=== PATIENT | male | born 1995 | race Two or more races ===

== ENCOUNTER 2017-09-02 00:11 | Emergency (ER) | payer OTHER ==
[2017-09-02] MEDS ORDERED: Sodium Chloride 0.9% 1,000 ML IV STA (00:21)
--- NOTE | 2017-09-02 00:39 | ED PDOC ---
Syncope/Near Syncope/Dizziness Time Seen by Provider: 09/02/17 00:17 Chief Complaint (Nursing): Syncope Chief Complaint (Provider): Syncope History Per: EMS History/Exam Limitations: clinical condition Additional Complaint(s): 22 y/o male brought in by [facility] who was found by a group of [employer] students laying in the bushes and was initially unresponsive. Patient was given oral glucose in the field and became more responsive. He has a history of eating disorders per EMS. Upon arrival to the ED, patient was not answering questions and is noted to be in a poor state of hygiene. PMD: None Provided Past Medical History Reviewed: Historical Data, Nursing Documentation, Vital Signs Vital Signs: Last Vital Signs Temp 97.4 F L 09/02/17 00:13 Pulse 93 H 09/02/17 00:13 Resp 16 09/02/17 00:13 BP 133/82 09/02/17 00:13 Pulse Ox 99 09/02/17 00:13 - Medical History Other PMH: Eating disorder - Family History Family History: States: Unknown Family Hx - Allergies Allergies/Adverse Reactions: Allergies Allergy/AdvReac Type Severity Reaction Status Date / Time No Known Allergies Allergy Verified 09/02/17 00:16 Review of Systems Review Of Systems: ROS cannot be obtained secondary to pt's inabilty to answer questions. Physical Exam - Reviewed Nursing Documentation Reviewed: Yes Vital Signs Reviewed: Yes - Physical Exam Appears: Positive for: Non-toxic, No Acute Distress Head Exam: Positive for: NORMAL INSPECTION, NORMOCEPHALIC. Negative for: ATRAUMATIC (abrasian to left cheek) Skin: Positive for: Normal Color, Warm, Dry Eye Exam: Positive for: Normal appearance, EOMI, PERRL. Negative for: Nystagmus ENT: Positive for: Normal ENT Inspection Neck: Positive for: Normal, Painless ROM, Supple Cardiovascular/Chest: Positive for: Regular Rate, Rhythm. Negative for: Edema, Murmur Respiratory: Positive for: Normal Breath Sounds. Negative for: Wheezing, Respiratory Distress Gastrointestinal/Abdominal: Positive for: Normal Exam, Bowel Sounds, Soft. Negative for: Tenderness Back: Positive for: Normal Inspection Extremity: Positive for: Normal ROM. Negative for: Pedal Edema, Deformity Neurologic/Psych: Positive for: Alert. Negative for: Oriented (not engagint to assess orientation) - Laboratory Results Result Diagrams: 09/02/17 00:55 09/02/17 00:55 - ECG O2 Sat by Pulse Oximetry: 99 (RA) Pulse Ox Interpretation: Normal Medical Decision Making Medical Decision Making: Time: 00:17 Initial Impression: 22 y/o male with syncopal event/mental status changes Initial Plan: --CT Head w/o Contrast --EKG --Alcohol Serum --CMP --Urine Drug Screen --Accucheck Time: 1:53 CT HEAD FINDINGS: Brain: Streak artifact limits evaluation of the skull base. No evidence of acute intracranial hemorrhage. Correlate clinically.. No significant white matter disease. No edema. Ventricles: Unremarkable. No ventriculomegaly. Bones/joints: No displaced fracture Soft tissues: Unremarkable. Sinuses: Unremarkable as visualized. No acute sinusitis. Mastoid air cells: Unremarkable as visualized. No mastoid effusion. IMPRESSION: Streak artifact limits evaluation of the skull base. No evidence of acute intracranial hemorrhage. Correlate clinically. Scribe Attestation: Documented by Manjeet Maldonado, acting as a scribe for Dr. Jordan Banda MD. Provider Scribe Attestation: All medical record entries made by the Scribe were at my direction and personally dictated by me. I have reviewed the chart and agree that the record accurately reflects my personal performance of the history, physical exam, medical decision making, and the department course for this patient. I have also personally directed, reviewed, and agree with the discharge instructions and disposition. Disposition - Clinical Impression Clinical Impression: Syncope - Patient ED Disposition Is Patient to be Admitted: No - Disposition Disposition: Routine/Home Disposition Time: 05:00 Condition: STABLE Instructions: Syncope (ED) Forms: [employer] (Kittitian)
[2017-09-02 00:59] LABS: BASO % 0.5 % (0.0-2.0); EOS # 0.1 K/uL (0.0-0.7); EOS % 0.9 % (0.0-4.0); HEMATOCRIT 40.1 % (35.0-51.0); LYMPH # 1.5 K/uL (1.0-4.3); LYMPH % 24.2 % (20.0-40.0); MEAN CELL VOLUME 82.6 fl (80.0-94.0); MEAN CORPUSCULAR HEMOGLOBIN 27.2 pg (27.0-31.0); MEAN PLATELET VOLUME 9.2 fl (7.2-11.7); MONO # 0.4 K/uL (0.0-0.8); MONO % 6.7 % (0.0-10.0); NEUT # 4.3 K/uL (1.8-7.0); NEUT % 67.7 % (50.0-75.0); RED CELL DISTRIBUTION WIDTH 12.8 % (11.5-14.5); WHITE BLOOD COUNT 6.4 K/uL (4.8-10.8)
[2017-09-02 01:09] LABS: ALB/GLOB RATIO 1.4 (1.0-2.1); ALCOHOL SERUM < 10 mg/dl (0-10); ALKALINE PHOSPHATASE 49 U/L (38-126); ALT/SGPT 40 U/L (21-72); AST/SGOT 31 U/L (17-59); BILIRUBIN,TOTAL 0.8 mg/dl (0.2-1.3); BLOOD UREA NITROGEN 15 mg/dl (9-20); CALCIUM 9.4 mg/dL (8.4-10.2); CARBON DIOXIDE 21 mmol/L (22-30); CHLORIDE 106 mmol/L (98-107); GFR AFRICAN-AMERICAN > 60; GLUCOSE,RANDOM 77 mg/dL (75-110); POTASSIUM 3.8 MMOL/L (3.6-5.0); SODIUM 145 mmol/l (132-148)
[2017-09-02 06:27] VITALS: BP 121/85; PULSE 41; RESP 11; TEMP 97.8
[2017-09-02 06:43] VITALS: O2SAT 99
--- NOTE | 2017-09-02 08:12 | CT ---
PROCEDURE: CT HEAD WITHOUT CONTRAST. HISTORY: AMS COMPARISON: None available. TECHNIQUE: Axial computed tomography images were obtained through the head/brain without intravenous contrast. Radiation dose: Total exam DLP = 770.13 MGy-cm. This CT exam was performed using one or more of the following dose reduction techniques: Automated exposure control, adjustment of the mA and/or kV according to patient size, and/or use of iterative reconstruction technique. FINDINGS: HEMORRHAGE: No intracranial hemorrhage. BRAIN: Hidalgo-white matter differentiation is preserved. There is no mass, mass effect or abnormal extra-axial fluid collection. VENTRICLES: The ventricles are normal in size, shape and configuration. CALVARIUM: There is no calvarial fracture or extracranial soft tissue swelling. PARANASAL SINUSES: Predominantly clear. MASTOID AIR CELLS: Predominantly clear. OTHER FINDINGS: None. IMPRESSION: No acute intracranial abnormality. A preliminary report was provided by [facility].
--- NOTE | 2017-09-02 08:19 | CARD ---
APPROVED REPORT EKG Measurement Heart [id number] <Conclusion> Marked sinus bradycardia Abnormal ECG
== END 2017-09-02 06:47 | disposition home or self-care (01) ==
LOC: H.ER 00:11
DX: R55 Syncope and collapse (principal)
CPT/HCPCS: 70450; 80053; 80320; 80324; 80345; 80346; 80349; 80353; 80358; 80361; 82948; 83735; 83992; 85025; 93005; 96360; 99284; J7040